=== PATIENT | male | born 1950 | race Caucasian/White ===

== ENCOUNTER 2016-07-11 10:49 | Outpatient (RCR) | payer MEDICARE, BC, OTHER ==
[~2016-07-11 10:49] MED LIST: ACHD5005 PO; ACYC400T79; AMLO5TAB2 GT; CIALIS 10 MG; CITA20TA4 PO; CLPD75T; ENAL10TA; ENAL20TA PO; ESCT10T; METO50TA7; OLME40TA14; OMEP-10; OMEP20TA2 PO; SIMV20TA3; TADA2.5T; TMZP15C GT; TRIA1CAP4; [UNRECOGNIZED DRUG - OTHER] PO; [UNRECOGNIZED DRUG - OTHER] PO; [UNRECOGNIZED DRUG - OTHER] PO
[2016-07-11 11:08] LABS: MEAN PLATELET VOLUME 9.6 FL (7.4-10.4); RED BLOOD COUNT 5.03 10^6/uL (4.35-5.85); RED CELL DISTRIBUTION WIDTH 15.1 % (10.0-14.5); WHITE BLOOD COUNT 6.7 10^3/uL (4.3-11.0)
[2016-07-11 11:25] LABS: ALANINE AMINOTRANSFERASE 23 U/L (0-55); ALBUMIN 4.2 G/DL (3.2-4.5); ANION GAP 12 MMOL/L (5-14); ASPARTATE AMINO TRANSFERASE 17 U/L (5-34); BILIRUBIN,TOTAL 0.4 MG/DL (0.1-1.0); BLOOD UREA NITROGEN 18 MG/DL (7-18); BUN/CREATININE RATIO 20; CALCIUM 9.2 MG/DL (8.5-10.1); CARBON DIOXIDE 21 MMOL/L (21-32); CHLORIDE 105 MMOL/L (98-107); CREATININE SERUM 0.89 MG/DL (0.60-1.30); GFR ESTIMATED > 60; GLUCOSE 119 MG/DL (70-105); POTASSIUM 3.9 MMOL/L (3.6-5.0); SODIUM 138 MMOL/L (135-145); TOTAL PROTEIN 6.7 G/DL (6.4-8.2)
[2016-07-11 11:55] LABS: BILIRUBIN,URINE NEGATIVE (NEGATIVE); KETONES,URINE NEGATIVE (NEGATIVE); LEUKOCYTE ESTERASE ,URINE NEGATIVE (NEGATIVE); NITRITE,URINE NEGATIVE (NEGATIVE); PH,URINE 6 (5-9); PROTEIN,URINE NEGATIVE (NEGATIVE); UROBILINOGEN,URINE NORMAL (NORMAL)
--- NOTE | 2016-07-11 13:07 | Diagnostic Imaging Report ---
INDICATION: PRE OP Z01.810, Z01.818 COMPARISON: 06/08/2016 FINDINGS: Frontal and lateral views of the chest demonstrate normal heart size and pulmonary vascularity. There is aortic atherosclerosis. The lungs are clear. There are no signs of infiltrate, pleural effusions or pneumothoraces. The visualized osseous structures show no acute abnormalities. IMPRESSION: 1. No acute process. No signs of infiltrates, effusions or pneumothoraces. Dictated by: Dictated on workstation # [id number]
== END 2016-10-09 | disposition home or self-care (01) ==
LOC: CARD 10:49
PROVIDERS: ATTEND Thoracic Surgery (Cardiothoracic Vascular Surgery)
DX: Z01.810 Encounter for preprocedural cardiovascular examination (principal); Z01.811 Encounter for preprocedural respiratory examination; Z01.812 Encounter for preprocedural laboratory examination; I73.9 Peripheral vascular disease, unspecified
CPT/HCPCS: 36415; 71020; 80053; 81000; 85027; 93005

== ENCOUNTER → 2016-12-05 | Outpatient (CLI) | payer MEDICARE, BC, OTHER ==
--- OUTSIDE RECORDS SUMMARY | 2016-12-05 14:50 | XMS REPORT | Continuity of Care Document ---
Author Author [facility] Organization [facility] Address Unknown Phone Unavailable Allergies Active Description Code Type Severity Reaction Onset Reported/Identified Relationship to Patient Clinical Status Yes No Known Drug Allergies [id number] Drug Allergy Unknown N/ A 05/14/2009 Medications Problems Date Dx Coded Attending Type Code Diagnosis Diagnosed By 12/16/2011 Ot 211.3 BENIGN NEOPLASM LG BOWEL 12/16/2011 Ot 562.10 DIVERTICULOSIS COLON (W/O MENT OF HEMORR 12/16/2011 Ot 569.84 ANGIODYSPLASIA INTESTINE (W/O MENT OF HE 12/16/2011 Ot V16.0 FAMILY HX-GI MALIGNANCY 12/16/2011 Ot V76.51 SCREEN MAL NEOP-COLON 10/22/2013 SINA ARORA, UMA Byrd Ot 575.11 CHRONIC CHOLECYSTITIS 08/22/2014 ROSEMARY ARORA, TRISTAN Byrd Ot 786.2 09/03/2014 ROSEMARY ARORA, TRISTAN Byrd Ot 786.2 12/03/2014 ROSEMARY ARORA, TRISTAN Byrd Ot 786.2 07/24/2015 AMANDA ARORA, JANE Ho Ot D12.6 07/24/2015 AMANDA ARORA, JANE Ho Ot Z12.11 07/24/2015 AMANDA ARORA, JANE Ho Ot Z80.0 08/06/2015 AMANDA ARORA, JANE Ho Ot D12.6 08/06/2015 JANE PATEL MD Ot Z12.11 08/06/2015 AMANDA ARORA, JANE Ho Ot Z80.0 08/11/2015 AMANDA ARORA, JANE Ho Ot D12.6 08/11/2015 AMANDA ARORA, JANE Ho Ot Z12.11 08/11/2015 AMANDA ARORA, JANE Ho Ot Z80.0 06/08/2016 Ot V72.84 EXAM PRE-OPERATIVE NOS 06/08/2016 Ot 401.9 HYPERTENSION NOS 06/08/2016 AMANDA ARORA, JANE Ho Ot V72.84 EXAM PRE-OPERATIVE NOS 06/08/2016 AMANDA ARORA, JANE Ho Ot 211.3 BENIGN NEOPLASM LG BOWEL 06/08/2016 AMANDA ARORA, JANE Ho Ot 535.40 OTH SPECIFIED GASTRITIS,W/O MENTION OF H 06/08/2016 JNAE PATEL MD Ot 553.3 DIAPHRAGMATIC HERNIA 06/08/2016 JANE PATEL MD Ot 562.10 DIVERTICULOSIS COLON (W/O MENT OF HEMORR 06/08/2016 JANE PATEL MD Ot 600.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 06/08/2016 JANE PATEL MD Ot V16.0 FAMILY HX-GI MALIGNANCY 06/08/2016 JANE PATEL MD Ot V76.51 SCREEN MAL NEOP-COLON 06/08/2016 SINA ARORA, UMA Byrd Ot 789.01 ABDOMINAL PAIN, RIGHT UPPER QUADRANT 06/08/2016 SINA ARORA, UMA Byrd Ot 574.20 CHOLELITHIASIS NOS 06/08/2016 SINA ARORA, UMA Byrd Ot V72.63 PRE-PROCEDURAL LABORATORY EXAMINATION 06/08/2016 SINA ARORA, UMA Byrd Ot V74.8 SCREEN-BACTERIAL DIS NEC 06/08/2016 ROSEMARY ARORA, TRISTAN Byrd Ot 786.2 COUGH 06/08/2016 AMANDA ARORA, JANE Ho Ot D12.6 BENIGN NEOPLASM OF COLON, UNSPECIFIED 06/08/2016 JANE PATEL MD Ot Z12.11 ENCOUNTER FOR SCREENING FOR MALIGNANT NE 06/08/2016 JANE PATEL MD Ot Z80.0 FAMILY HISTORY OF MALIGNANT NEOPLASM OF 06/08/2016 JANE PATEL MD Ot Z01.818 ENCOUNTER FOR OTHER PREPROCEDURAL EXAMIN 06/09/2016 AKIL BEARDEN MD Ot I73.9 PERIPHERAL VASCULAR DISEASE, UNSPECIFIED 06/09/2016 AKIL BEARDEN MD Ot Z01.810 ENCOUNTER FOR PREPROCEDURAL CARDIOVASCUL 06/09/2016 AKIL BEARDEN MD Ot Z01.818 ENCOUNTER FOR OTHER PREPROCEDURAL EXAMIN 06/30/2016 AKIL BEARDEN MD Ot I73.9 PERIPHERAL VASCULAR DISEASE, UNSPECIFIED 06/30/2016 AKIL BEARDEN MD Ot Z01.810 ENCOUNTER FOR PREPROCEDURAL CARDIOVASCUL 06/30/2016 AKIL BEARDEN MD Ot Z01.818 ENCOUNTER FOR OTHER PREPROCEDURAL EXAMIN 07/06/2016 AKIL BEARDEN MD Ot I73.9 PERIPHERAL VASCULAR DISEASE, UNSPECIFIED 07/06/2016 AKIL BEARDEN MD Ot Z01.810 ENCOUNTER FOR PREPROCEDURAL CARDIOVASCUL 07/06/2016 AKIL BEARDEN MD Ot Z01.818 ENCOUNTER FOR OTHER PREPROCEDURAL EXAMIN 07/11/2016 Ot V72.84 EXAM PRE-OPERATIVE NOS 07/11/2016 Ot 401.9 HYPERTENSION NOS 07/11/2016 AMANDA ARORA, JANE Ho Ot V72.84 EXAM PRE-OPERATIVE NOS 07/11/2016 AMANDA ARORA, JANE Ho Ot 211.3 BENIGN NEOPLASM LG BOWEL 07/11/2016 AMANDA ARORA, JANE Ho Ot 535.40 OTH SPECIFIED GASTRITIS,W/O MENTION OF H 07/11/2016 JANE PATEL MD Ot 553.3 DIAPHRAGMATIC HERNIA 07/11/2016 JANE PATEL MD Ot 562.10 DIVERTICULOSIS COLON (W/O MENT OF HEMORR 07/11/2016 JANE PATEL MD Ot 600.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 07/11/2016 JANE PATEL MD Ot V16.0 FAMILY HX-GI MALIGNANCY 07/11/2016 JANE PATEL MD Ot V76.51 SCREEN MAL NEOP-COLON 07/11/2016 SINA ARORA, UMA Byrd Ot 789.01 ABDOMINAL PAIN, RIGHT UPPER QUADRANT 07/11/2016 SINA ARORA, UMA Byrd Ot 574.20 CHOLELITHIASIS NOS 07/11/2016 SINA ARORA, UMA Byrd Ot V72.63 PRE-PROCEDURAL LABORATORY EXAMINATION 07/11/2016 ISNA ARORA, UMA Byrd Ot V74.8 SCREEN-BACTERIAL DIS NEC 07/11/2016 ROSEMARY ARORA, TRISTAN Byrd Ot 786.2 COUGH 07/11/2016 JANE PATEL MD Ot D12.6 BENIGN NEOPLASM OF COLON, UNSPECIFIED 07/11/2016 JANE PATEL MD Ot Z12.11 ENCOUNTER FOR SCREENING FOR MALIGNANT NE 07/11/2016 JANE PATEL MD Ot Z80.0 FAMILY HISTORY OF MALIGNANT NEOPLASM OF 07/11/2016 JANE PATEL MD Ot Z01.818 ENCOUNTER FOR OTHER PREPROCEDURAL EXAMIN 07/11/2016 AKIL BEARDEN MD Ot I73.9 PERIPHERAL VASCULAR DISEASE, UNSPECIFIED 07/11/2016 SULEIMAN ARORA, AKIL Ot Z01.810 ENCOUNTER FOR PREPROCEDURAL CARDIOVASCUL 07/11/2016 AKIL BEARDEN MD, Ot Z01.818 ENCOUNTER FOR OTHER PREPROCEDURAL EXAMIN 07/12/2016 Ot V72.84 EXAM PRE-OPERATIVE NOS 07/12/2016 Ot 401.9 HYPERTENSION NOS 07/12/2016 AMANDA ARORA, JANE Ho Ot V72.84 EXAM PRE-OPERATIVE NOS 07/12/2016 AMANDA ARORA, JANE Ho Ot 211.3 BENIGN NEOPLASM LG BOWEL 07/12/2016 AMANDA ARORA, JANE Ho Ot 535.40 OTH SPECIFIED GASTRITIS,W/O MENTION OF H 07/12/2016 JANE PATEL MD Ot 553.3 DIAPHRAGMATIC HERNIA 07/12/2016 JANE PATEL MD Ot 562.10 DIVERTICULOSIS COLON (W/O MENT OF HEMORR 07/12/2016 JANE PATEL MD Ot 600.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 07/12/2016 AMANDA ARORA, JANE Ho Ot V16.0 FAMILY HX-GI MALIGNANCY 07/12/2016 AMANDA ARORA, JANE Ho Ot V76.51 SCREEN MAL NEOP-COLON 07/12/2016 SINA ARORA, UMA Byrd Ot 789.01 ABDOMINAL PAIN, RIGHT UPPER QUADRANT 07/12/2016 SINA ARORA, UMA Byrd Ot 574.20 CHOLELITHIASIS NOS 07/12/2016 SINA ARORA, UMA Byrd Ot V72.63 PRE-PROCEDURAL LABORATORY EXAMINATION 07/12/2016 SINA ARORA, UMA Byrd Ot V74.8 SCREEN-BACTERIAL DIS NEC 07/12/2016 ROSEMARY ARORA, TRISTAN Byrd Ot 786.2 COUGH 07/12/2016 AMANDA ARORA, JANE Ho Ot D12.6 BENIGN NEOPLASM OF COLON, UNSPECIFIED 07/12/2016 AMANDA ARORA, JANE Ho Ot Z12.11 ENCOUNTER FOR SCREENING FOR MALIGNANT NE 07/12/2016 AMANDA ARORA, JANE Ho Ot Z80.0 FAMILY HISTORY OF MALIGNANT NEOPLASM OF 07/12/2016 JANE PATEL MD Ot Z01.818 ENCOUNTER FOR OTHER PREPROCEDURAL EXAMIN 07/12/2016 SULEIMAN ARORA, AKIL Ot I73.9 PERIPHERAL VASCULAR DISEASE, UNSPECIFIED 07/12/2016 SULEIMAN ARORA, AKIL Ot Z01.810 ENCOUNTER FOR PREPROCEDURAL CARDIOVASCUL 07/12/2016 AKIL BEARDEN MD Ot Z01.818 ENCOUNTER FOR OTHER PREPROCEDURAL EXAMIN 07/12/2016 SULEIMAN ARORA, AKIL Ot I73.9 PERIPHERAL VASCULAR DISEASE, UNSPECIFIED 07/12/2016 AKIL BEARDEN MD Ot Z01.810 ENCOUNTER FOR PREPROCEDURAL CARDIOVASCUL 07/12/2016 AKIL BEARDEN MD Ot Z01.811 ENCOUNTER FOR PREPROCEDURAL RESPIRATORY 07/12/2016 AKIL BEARDEN MD Ot Z01.812 ENCOUNTER FOR PREPROCEDURAL LABORATORY E 07/12/2016 AKIL BEARDEN MD Ot I73.9 PERIPHERAL VASCULAR DISEASE, UNSPECIFIED 07/12/2016 AKIL BEARDEN MD Ot Z01.810 ENCOUNTER FOR PREPROCEDURAL CARDIOVASCUL 07/12/2016 AKIL BEARDEN MD Ot Z01.811 ENCOUNTER FOR PREPROCEDURAL RESPIRATORY 07/12/2016 AKIL BEARDEN MD Ot Z01.812 ENCOUNTER FOR PREPROCEDURAL LABORATORY E 08/30/2016 SULEIMAN ARORA, AKIL Ot I73.9 PERIPHERAL VASCULAR DISEASE, UNSPECIFIED 08/30/2016 KAIL BEARDEN MD Ot Z01.810 ENCOUNTER FOR PREPROCEDURAL CARDIOVASCUL 08/30/2016 AKIL BEARDEN MD Ot Z01.811 ENCOUNTER FOR PREPROCEDURAL RESPIRATORY 08/30/2016 AKIL BEARDEN MD Ot Z01.812 ENCOUNTER FOR PREPROCEDURAL LABORATORY E 09/07/2016 AKIL BEARDEN MD Ot I73.9 PERIPHERAL VASCULAR DISEASE, UNSPECIFIED 09/07/2016 AKIL BEARDEN MD Ot Z01.810 ENCOUNTER FOR PREPROCEDURAL CARDIOVASCUL 09/07/2016 AKIL BEARDEN MD Ot Z01.811 ENCOUNTER FOR PREPROCEDURAL RESPIRATORY 09/07/2016 AKIL BEARDEN MD Ot Z01.812 ENCOUNTER FOR PREPROCEDURAL LABORATORY E 10/09/2016 AKIL BEARDEN MD Ot I73.9 PERIPHERAL VASCULAR DISEASE, UNSPECIFIED 10/09/2016 AKIL BEARDEN MD Ot Z01.810 ENCOUNTER FOR PREPROCEDURAL CARDIOVASCUL 10/09/2016 AKIL BEARDEN MD, Ot Z01.811 ENCOUNTER FOR PREPROCEDURAL RESPIRATORY 10/09/2016 AKIL BEARDEN MD, Ot Z01.812 ENCOUNTER FOR PREPROCEDURAL LABORATORY E Procedures Results Test Result Range Automated blood complete blood count (hemogram) panel - 06/08/16 10:29 Blood leukocytes automated count (number/volume) 5.5 10*3/ uL 4.3-11.0 Blood erythrocytes automated count (number/volume) 5.12 10*6 /uL 4.35-5.85 Venous blood hemoglobin measurement (mass/volume) 14.8 g/dL 13.3-17.7 Blood hematocrit (volume fraction) 43 % 40-54 Automated erythrocyte mean corpuscular volume 84 [foz_us] 80-99 Automated erythrocyte mean corpuscular hemoglobin (mass per erythrocyte) 29 pg 25-34 Automated erythrocyte mean corpuscular hemoglobin concentration measurement ( mass/volume) 35 g/dL 32-36 Automated erythrocyte distribution width ratio 16.1 % 10.0-14.5 Automated blood platelet count (count/volume) 219 10*3/uL 130-400 Automated blood platelet mean volume measurement 9.3 [foz_us ] 7.4-10.4 Comprehensive metabolic panel - 06/08/16 10:29 Serum or plasma sodium measurement (moles/volume) 137 mmol/ L 135-145 Serum or plasma potassium measurement (moles/volume) 4.0 mmol/L 3.6-5.0 Serum or plasma chloride measurement (moles/volume) 104 mmol /L 98-107 Carbon dioxide 27 mmol/L 21-32 Serum or plasma anion gap determination (moles/volume) 6 mmol/L 5-14 Serum or plasma urea nitrogen measurement (mass/volume) 18 mg/dL 7-18 Serum or plasma creatinine measurement (mass/volume) 0.84 mg /dL 0.60-1.30 Serum or plasma urea nitrogen/creatinine mass ratio 21 NRG Serum or plasma creatinine measurement with calculation of estimated glomerular filtration rate > NRG Serum or plasma glucose measurement (mass/volume) 92 mg/dL 70-105 Serum or plasma calcium measurement (mass/volume) 9.2 mg/dL 8.5-10.1 Serum or plasma total bilirubin measurement (mass/volume) 0.5 mg/dL 0.1-1.0 Serum or plasma alkaline phosphatase measurement (enzymatic activity/volume) 120 U/L 40-136 Serum or plasma aspartate aminotransferase measurement (enzymatic activity/ volume) 21 U/L 5-34 Serum or plasma alanine aminotransferase measurement (enzymatic activity/volume ) 36 U/L 0-55 Serum or plasma protein measurement (mass/volume) 6.4 g/dL 6.4-8.2 Serum or plasma albumin measurement (mass/volume) 4.2 g/dL 3.2-4.5 Complete urinalysis with reflex to culture - 06/08/16 11:09 Urine color determination YELLOW NRG Urine clarity determination CLEAR NRG Urine pH measurement by test strip 6 5- 9 Specific gravity of urine by test strip 1.010 1.016-1.022 Urine protein assay by test strip, semi-quantitative NEGATIVE NEGATIVE Urine glucose detection by automated test strip NEGATIVE NEGATIVE Erythrocytes detection in urine sediment by light microscopy NEGATIVE NEGATIVE Urine ketones detection by automated test strip NEGATIVE NEGATIVE Urine nitrite detection by test strip NEGATIVE NEGATIVE Urine total bilirubin detection by test strip NEGATIVE NEGATIVE Urine urobilinogen measurement by automated test strip (mass/volume) NORMAL NORMAL Urine leukocyte esterase detection by dipstick 1+ NEGATIVE Automated urine sediment erythrocyte count by microscopy (number/high power field) NONE NRG Automated urine sediment leukocyte count by microscopy (number/high power field ) [HPF] NRG Bacteria detection in urine sediment by light microscopy TRACE NRG Crystals detection in urine sediment by light microscopy NONE NRG Casts detection in urine sediment by light microscopy NONE NRG Mucus detection in urine sediment by light microscopy SMALL NRG Complete urinalysis with reflex to culture NO NRG Automated blood complete blood count (hemogram) panel - 07/11/16 11:01 Blood leukocytes automated count (number/volume) 6.7 10*3/ uL 4.3-11.0 Blood erythrocytes automated count (number/volume) 5.03 10*6 /uL 4.35-5.85 Venous blood hemoglobin measurement (mass/volume) 14.7 g/dL 13.3-17.7 Blood hematocrit (volume fraction) 43 % 40-54 Automated erythrocyte mean corpuscular volume 85 [foz_us] 80-99 Automated erythrocyte mean corpuscular hemoglobin (mass per erythrocyte) 29 pg 25-34 Automated erythrocyte mean corpuscular hemoglobin concentration measurement ( mass/volume) 35 g/dL 32-36 Automated erythrocyte distribution width ratio 15.1 % 10.0-14.5 Automated blood platelet count (count/volume) 195 10*3/uL 130-400 Automated blood platelet mean volume measurement 9.6 [foz_us ] 7.4-10.4 Comprehensive metabolic panel - 07/11/16 11:01 Serum or plasma sodium measurement (moles/volume) 138 mmol/ L 135-145 Serum or plasma potassium measurement (moles/volume) 3.9 mmol/L 3.6-5.0 Serum or plasma chloride measurement (moles/volume) 105 mmol /L 98-107 Carbon dioxide 21 mmol/L 21-32 Serum or plasma anion gap determination (moles/volume) 12 mmol/L 5-14 Serum or plasma urea nitrogen measurement (mass/volume) 18 mg/dL 7-18 Serum or plasma creatinine measurement (mass/volume) 0.89 mg /dL 0.60-1.30 Serum or plasma urea nitrogen/creatinine mass ratio 20 NRG Serum or plasma creatinine measurement with calculation of estimated glomerular filtration rate > NRG Serum or plasma glucose measurement (mass/volume) 119 mg/dL 70-105 Serum or plasma calcium measurement (mass/volume) 9.2 mg/dL 8.5-10.1 Serum or plasma total bilirubin measurement (mass/volume) 0.4 mg/dL 0.1-1.0 Serum or plasma alkaline phosphatase measurement (enzymatic activity/volume) 115 U/L 40-136 Serum or plasma aspartate aminotransferase measurement (enzymatic activity/ volume) 17 U/L 5-34 Serum or plasma alanine aminotransferase measurement (enzymatic activity/volume ) 23 U/L 0-55 Serum or plasma protein measurement (mass/volume) 6.7 g/dL 6.4-8.2 Serum or plasma albumin measurement (mass/volume) 4.2 g/dL 3.2-4.5 Complete urinalysis with reflex to culture - 07/11/16 11:01 Urine color determination YELLOW NRG Urine clarity determination SLIGHTLY CLOUDY NRG Urine pH measurement by test strip 6 5- 9 Specific gravity of urine by test strip 1.015 1.016-1.022 Urine protein assay by test strip, semi-quantitative NEGATIVE NEGATIVE Urine glucose detection by automated test strip NEGATIVE NEGATIVE Erythrocytes detection in urine sediment by light microscopy NEGATIVE NEGATIVE Urine ketones detection by automated test strip NEGATIVE NEGATIVE Urine nitrite detection by test strip NEGATIVE NEGATIVE Urine total bilirubin detection by test strip NEGATIVE NEGATIVE Urine urobilinogen measurement by automated test strip (mass/volume) NORMAL NORMAL Urine leukocyte esterase detection by dipstick NEGATIVE NEGATIVE Automated urine sediment erythrocyte count by microscopy (number/high power field) NONE NRG Automated urine sediment leukocyte count by microscopy (number/high power field ) NONE NRG Bacteria detection in urine sediment by light microscopy NEGATIVE NRG Squamous epithelial cells detection in urine sediment by light microscopy NONE NRG Crystals detection in urine sediment by light microscopy NONE NRG Casts detection in urine sediment by light microscopy NONE NRG Mucus detection in urine sediment by light microscopy NEGATIVE NRG Complete urinalysis with reflex to culture NO NRG Encounters ACCT No. Visit Date/Time Discharge Status Pt. Type Provider Facility Loc./Unit Complaint [id number] 07/11/2016 10:49:00 2016 00:01:00 DIS Outpatient AKIL BEARDEN MD [facility] CARD Z01.810, Z01.818,PERIHPERAL VASCULAR DISEASE,I73.9 [id number] 07/17/2015 06:49:00 2014 23:59:59 CLS Outpatient JANE PATEL MD [facility] FAMILY HX COLON CANCER; HYX POLYPS [id number] 07/16/2015 05:42:00 2014 23:59:59 CLS Outpatient JANE PATEL MD [facility] PREOP FAMILY HX COLON CANCER; HYX POLYPS [id number] 08/14/2014 12:46:00 2013 23:59:59 CLS Outpatient TRISTAN RILEY MD [facility] RAD COUGH [id number] 10/22/2013 06:04:00 2013 12:50:00 DIS Outpatient UMA ANDINO MD [facility] GALLSTONES [id number] 10/07/2013 07:36:00 2012 23:59:59 CLS Outpatient UMA ANDINO MD [facility] PREOP GALLSTONES [id number] 08/30/2013 07:57:00 2012 23:59:59 CLS Outpatient UMA ANDINO MD [facility] RAD RUQ PAIN [id number] 08/02/2013 06:39:00 2012 23:59:59 CLS Outpatient JANE PATEL MD [facility] SDC SCREENING [id number] 08/01/2013 07:14:00 2012 23:59:59 CLS Outpatient JANE PATEL MD [facility] PREOP SCREENING [id number] 10/10/2016 10:45:00 PEN Preadmit AKIL BEARDEN MD [facility] CARD Z01.810, Z01.818,PERIHPERAL VASCULAR DISEASE,I73.9 [id number] 06/08/2016 10:08:00 ACT Outpatient AKIL BEARDEN MD [facility] LAB Z01.810,Z01.818 [id number] 06/08/2016 10:06:00 Document Registration [id number] 06/08/2016 10:06:00 Document Registration [id number] 04/10/2012 07:51:00 Document Registration [id number] 12/16/2011 07:45:00 Document Registration [id number] 12/14/2011 08:11:00 Document Registration
[2016-12-05 15:22] LABS: BASOPHILS % (AUTO) 0 % (0-10); EOSINOPHILS # (AUTO) 0.2 10^3/uL (0.0-0.3); EOSINOPHILS % (AUTO) 4 % (0-10); LYMPHOCYTES % (AUTO) 31 % (12-44); MEAN CORPUSCULAR HEMOGLOBIN 29 PG (25-34); MEAN CORPUSCULAR HGB CONC 35 G/DL (32-36); MEAN CORPUSCULAR VOLUME 83 FL (80-99); MEAN PLATELET VOLUME 9.9 FL (7.4-10.4); MONOCYTES # (AUTO) 0.5 X 10^3 (0.0-1.0); MONOCYTES % (AUTO) 8 % (0-12); NEUTROPHILS # (AUTO) 3.7 X 10^3 (1.8-7.8); NEUTROPHILS % (AUTO) 58 % (42-75); PLATELET COUNT 216 10^3/uL (130-400); RED BLOOD COUNT 5.42 10^6/uL (4.35-5.85); RED CELL DISTRIBUTION WIDTH 14.8 % (10.0-14.5); WHITE BLOOD COUNT 6.5 10^3/uL (4.3-11.0)
--- NOTE | 2016-12-05 15:28 | Diagnostic Imaging Report ---
PA and lateral views of the chest. INDICATION: Cough and shortness of breath. FINDINGS: The lungs are clear. The heart size is normal. No effusion or pneumothorax. The mediastinum and allegra appear unremarkable. IMPRESSION: Unremarkable exam. Dictated by: Dictated on workstation # [id number]
[2016-12-05 15:54] LABS: ALANINE AMINOTRANSFERASE 27 U/L (0-55); ALBUMIN 4.5 G/DL (3.2-4.5); ANION GAP 13 MMOL/L (5-14); ASPARTATE AMINO TRANSFERASE 23 U/L (5-34); BILIRUBIN,TOTAL 0.4 MG/DL (0.1-1.0); BLOOD UREA NITROGEN 16 MG/DL (7-18); BUN/CREATININE RATIO 17; CALCIUM 9.5 MG/DL (8.5-10.1); CARBON DIOXIDE 21 MMOL/L (21-32); CHLORIDE 106 MMOL/L (98-107); CREATININE SERUM 0.94 MG/DL (0.60-1.30); GFR ESTIMATED > 60; GLUCOSE 92 MG/DL (70-105); POTASSIUM 4.1 MMOL/L (3.6-5.0); SODIUM 140 MMOL/L (135-145); TOTAL PROTEIN 7.4 G/DL (6.4-8.2)
== END ==
LOC: RAD 14:45
PROVIDERS: ATTEND Internal Medicine
DX: R05 Cough (principal); R06.02 Shortness of breath; F17.200 Nicotine dependence, unspecified, uncomplicated
CPT/HCPCS: 36415; 71020; 80053; 85025

== ENCOUNTER 2017-08-23 05:35 | Outpatient (CLI) | payer MEDICARE, BC, OTHER ==
[~2017-08-23] VITALS: Ht 170.2 cm; Wt 81.6 kg
[2017-08-23] MEDS ORDERED: CLOP75TA69 PO (11:55)
[2017-08-23] MEDS ORDERED: BUPR150T20 PO (11:55)
[2017-08-23] MEDS ORDERED: BUPR150T14 PO (11:55)
[2017-08-23] MEDS ORDERED: MELO7.5T46 PO (11:55)
[2017-08-23] MEDS ORDERED: DOXE75CA2 PO (11:55)
[2017-08-23] MEDS ORDERED: AMLO5TAB2 PO (11:55)
[2017-08-23] MEDS ORDERED: METO-395 PO (11:55)
== END 2017-08-23 11:57 ==
LOC: PREOP 05:35
PROVIDERS: ATTEND Internal Medicine
DX: Z01.818 Encounter for other preprocedural examination (principal); Z86.010 Personal history of colon polyps

== ENCOUNTER 2017-08-25 07:17 | Day surgery (SDC) | payer MEDICARE, BC, OTHER ==
--- NOTE | 2017-08-10 20:33 | HISTORY AND PHYSICAL ---
DATE OF SERVICE: DATE OF ADMISSION: 08/25/2017 HISTORY OF PRESENT ILLNESS: The patient is a 67-year-old white male referred for surveillance colonoscopy due to strong family history for colon cancer and a personal history of multiple colonic adenomas. His last colonoscopy was 2 years ago, at which time he had one 6 mm sessile adenoma removed from the distal ascending colon. Reports that he has felt well in the interval, has noted no blood in the stool. Denies bowel habit change or abdominal pain. PAST MEDICAL HISTORY: Other than multiple colonic adenomas is pertinent for peripheral vascular disease, hypertension and tobaccoism. PHYSICAL EXAMINATION: GENERAL: Reveals a well-appearing, normal weight white male in no acute distress. VITAL SIGNS: Blood pressure initially 158/82, at the end of the interview was down to 140/78. CHEST: Clear. CARDIOVASCULAR: Revealed regular rate and rhythm with a soft 2/6 systolic ejection murmur heard best at the second right intercostal space. No S3 or S4 appreciated. There is no evidence of pulsus parvus et tardus. ABDOMEN: Soft, supple without mass, organomegaly or tenderness. EXTREMITIES: Reveal no cyanosis, clubbing or edema. ASSESSMENT: The patient is set up for surveillance colonoscopy due to a strong family history for colon cancer and a personal history of multiple colonic adenomas in the past. Prep instructions were given Suprep kits and patient was set up for 08/25/2017. Job ID: [id number] DocumentID: [id number] Dictated Date: 07/26/2017 21:11:08 Human Resources Benefits Coordinator Date: 07/26/2017 21:40:05 Dictated By: JANE PATEL MD
[~2017-08-25] VITALS: Ht 170.2 cm; Wt 81.6 kg
[~2017-08-25 07:17] MED LIST changes: +AMLO5TAB2 PO; +BUPR150T14 PO; +BUPR150T20 PO; +CLOP75TA69 PO; +DOXE75CA2 PO; +MELO7.5T46 PO; +METO-395 PO
[2017-08-25] MEDS ORDERED: 1/2 NS IV SOLUTION 1,000 ML IV STA (07:27)
[2017-08-25] MEDS ORDERED: LIDOCAINE JELLY 2% (XYLOCAINE) 5 ML TUBE MM PRN (07:30)
--- NOTE | 2017-08-25 07:38 | Pre-Op Note & Conscious Sedat ---
Pre-Operative Progress Note H&P Reviewed The H&P was reviewed, patient examined and no changes noted. Date H&P Reviewed: Aug 25, 2017 Time H&P Reviewed: 07:38 Conscious Sedation Pre-Proced ASA Class: 2 Airway Mallampati Classification: (ewiiaapaayp appropriate class) I. II. III, IV Lungs Heart ASA score ASA 1: a normal healthy patient ASA 2: a patient with a mild systemic disease (mid diabetes, controlled hypertension, obesity ASA 3: a patient with a severe systemic disease that limits activity (angina , COPD, prior Myocardial infarction) ASA 4: a patient with an incapacitating disease that is a constant threat to life (CHF, renal failure) ASA 5: a moribund patient not expected to survive 24 hrs. (ruptured aneurysm) ASA 6: a declared brain patient whose organs are being harvested. For emergent operations, add the letter E after the classification Grade 2 Sedation Plan: Analgesia, Amnesia, Plan communicated to team members, Discussed options with patient/fam, Discussed risks with patient/fam Note The patient is an appropriate candidate to undergo the planned procedure, sedation, and anesthesia. The patient immediately re-assessed prior to indication. JANE PATEL MD Aug 25, 2017 07:38
[2017-08-25 07:54] VITALS: BP 169/98
[2017-08-25] MEDS ORDERED: LIDOCAINE JELLY 2% (XYLOCAINE) 5 ML TUBE ONE (08:05)
[2017-08-25] MEDS ORDERED: MIDAZOLAM 2 MG/2 ML (VERSED) VIAL ONE ×2 (08:05)
[2017-08-25] MEDS ORDERED: fentaNYL INJECTION 100 MCG/2 ML AMP ONE (08:05)
[2017-08-25] MEDS ORDERED: MIDAZOLAM 2 MG/2 ML (VERSED) VIAL IVP PRN (08:15)
[2017-08-25] MEDS: fentaNYL INJECTION 100 MCG/2 ML AMP IVP PRN ×2 (08:40→08:45)
[2017-08-25 09:30] VITALS: BP 148/92
[2017-08-25 10:15] VITALS: BP 118/91
[2017-08-25 10:25] VITALS: BP 118/91
--- NOTE | 2017-08-25 14:52 | OPERATIVE REPORT ---
DATE OF SERVICE: COLONOSCOPY SUMMARY I am his primary care physician. INDICATION FOR PROCEDURE: Surveillance colonoscopy due to history of multiple adenomatous colonic polyp removal in the past. The patient was placed in the left lateral decubitus position. Prior to undergoing colonoscopy, digital rectal evaluation was performed. Anal sphincter tone was normal and the perianal reflexes intact. Prostate is mildly enlarged, anodular, nontender to digital inspection. No other abnormalities, no additional inspection of anal canal or distal rectal vault. The colonoscope was then inserted into the rectum and under direct visualization advanced to the cecum. The cecum was identified by identification of the ileocecal valve and the cecal strap. Photographic documentation was obtained. Careful inspection was made as the colonoscope was withdrawn. FINDINGS: There was no evidence for internal or external hemorrhoids and the rectum was unremarkable. A diminutive polyp was noted at the rectosigmoid junction was biopsied and ablated and submitted for histopathology. Similar polyps in the 2 to 4 mm size range with benign appearance were noted with locations in the distal descending, splenic flexure, proximal transverse and hepatic flexure locations all were biopsied and ablated and submitted for histopathology. Several small sigmoid diverticulum were present. No other abnormalities noted on today's colonoscopy to the cecum. ASSESSMENT: Five diminutive polyps were removed locations as noted above and submitted for histopathology. They were all in 2 to 4 mm size range. The patient requested a 2.5 year screening interval. As long as there are no surprises on histopathology today, we will plan on repeat surveillance colonoscopy in the summer. Job ID: [id number] DocumentID: [id number] Dictated Date: 08/25/2017 12:26:51 Facility Maintenance Technician Date: 08/25/2017 14:51:32 Dictated By: JANE PATEL MD [facility]
== END 2017-08-25 10:25 | disposition home or self-care (01) ==
LOC: ENDO 07:17
PROVIDERS: ATTEND Internal Medicine
DX: Z12.11 Encounter for screening for malignant neoplasm of colon (principal); D12.3 Benign neoplasm of transverse colon; D12.4 Benign neoplasm of descending colon; D12.7 Benign neoplasm of rectosigmoid junction; Z80.0 Family history of malignant neoplasm of digestive organs; I10 Essential (primary) hypertension; I73.9 Peripheral vascular disease, unspecified; Z72.0 Tobacco use

== ENCOUNTER → 2017-09-27 | Outpatient (CLI) | payer MEDICARE, BC, OTHER ==
--- NOTE | 2017-09-27 13:51 | Diagnostic Imaging Report ---
PROCEDURE: Lung cancer screening CT chest without contrast. TECHNIQUE: Multiple contiguous axial images were obtained through the chest without the use of intravenous contrast. This is performed with a low-dose protocol. INDICATION: Currently asymptomatic patient with 100 pack years history of smoking Comparison: None available. Findings: There is no significant consolidation, mass or suspicious nodule seen. Mild upper lobe predominant emphysema changes are seen. No significant interstitial lung disease or bronchiectasis. No pleural or pericardial effusion. The mediastinum demonstrate no mass or significantly enlarged lymph nodes. The ascending aorta demonstrates aneurysmal dilatation measuring 4.3 CM in caliber. Sections in the upper abdomen appear grossly unremarkable. The osseous structures demonstrate mild degenerative changes. IMPRESSION: No lung mass or suspicious nodule is seen. Mild emphysema changes. Lung Rads Category 2. Benign findings. Recommendations: Annual screening low-dose CT scan. Dictated by: Dictated on workstation # [id number]
== END ==
LOC: RAD 10:38
PROVIDERS: ATTEND Internal Medicine
DX: Z12.2 Encounter for screening for malignant neoplasm of respiratory organs (principal); J43.9 Emphysema, unspecified; Z87.891 Personal history of nicotine dependence

== ENCOUNTER → 2018-10-16 | Outpatient (CLI) | payer MEDICARE, BC, OTHER ==
[~2018-10-16] MED LIST changes: -AMLO5TAB2 PO; +AMLO5TAB7 PO
--- NOTE | 2018-10-16 14:25 | Diagnostic Imaging Report ---
EXAM: CT CHEST SCREENING WO INDICATION: 100 pack year smoking history. Current smoker. COMPARISON: Low-dose chest CT 09/27/2017. FINDINGS: Moderate centrilobular emphysema. No pulmonary nodule or mass. No endobronchial lesions. No pleural effusion or pneumothorax. Normal heart size. No pericardial effusion. Mild atherosclerotic calcifications including aortic. Normal caliber central pulmonary arteries. Stable ectasia of the ascending thoracic aorta measuring up to 4.2 cm in diameter. No mediastinal, hilar or axillary lymphadenopathy. Visualized upper abdominal contents are unremarkable. No acute osseous findings. IMPRESSION: 1. No new pulmonary nodule or mass. Recommend continued annual screening with low dose chest CT in 12 months. 2. Moderate centrilobular emphysema. 3. Stable ectasia of the ascending thoracic aorta measuring up to 4.2 cm in diameter. LungRads category: 1. Modifier: S. Please note that the low-dose technique of this chest CT is of non-diagnostic quality. This study is only intended for lung cancer screening of high risk patients. Dictated by: Dictated on workstation # [id number]
== END ==
LOC: RAD 09:11
PROVIDERS: ATTEND Internal Medicine
DX: Z12.2 Encounter for screening for malignant neoplasm of respiratory organs (principal); J43.2 Centrilobular emphysema; I77.810 Thoracic aortic ectasia; F17.210 Nicotine dependence, cigarettes, uncomplicated

== ENCOUNTER 2019-09-10 05:37 | Outpatient (CLI) | payer MEDICARE, BC, OTHER ==
[~2019-09-10] VITALS: Ht 172.7 cm; Wt 82.3 kg
[~2019-09-10 05:37] MED LIST changes: -AMLO5TAB7 PO; +AMLO5TAB9 PO
[2019-09-10] MEDS ORDERED: CLOP75TA28 PO (10:40)
== END 2019-09-10 10:46 ==
LOC: PREOP 05:37
PROVIDERS: ATTEND Internal Medicine
DX: Z01.818 Encounter for other preprocedural examination (principal)

== ENCOUNTER 2019-09-13 06:37 | Day surgery (SDC) | payer MEDICARE, BC, OTHER ==
--- NOTE | 2019-09-09 07:09 | HISTORY AND PHYSICAL ---
DATE OF SERVICE: COLONOSCOPY HISTORY AND PHYSICAL HISTORY OF PRESENT ILLNESS: The patient is a 69-year-old white male being set up for screening that surveillance colonoscopy due to past history of multiple adenomatous colonic polyps and a family history for colon cancer. He reports that he has been feeling well and states that this has been one year since his last cigarette. He has noted no bowel habit change. Denies abdominal pain and has noted no melena or bright red blood per rectum. Weight has been stable per his report. 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 He underwent first screening CT of the chest in October of this year at which time, he had moderate central lobular emphysematous change without evidence for neoplasia. He also had ectasia of the ascending aorta measuring 4.2 cm in diameter. He has had no chest or back pain. He has history of hypertension. His last colonoscopy was 2 years ago at which time one small hyperplastic polyp was removed. PHYSICAL EXAMINATION: GENERAL: Reveals a well-appearing white male in no acute distress. VITAL SIGNS: Weight stable 181.6 pounds. Initial blood pressure 188/94 and at the end of the interview 148/86. HEENT: Unremarkable. Oral cavity clear. NECK: Revealed no JVD, adenopathy or bruits. CHEST: Clear to auscultation. CARDIOVASCULAR: Revealed a regular rate and rhythm. Soft I to II/ systolic ejection murmur heard best over the aortic outflow tract without evidence for S3 or S4. EXTREMITIES: Reveal no cyanosis, clubbing or edema. ABDOMEN: Soft, supple without mass, organomegaly or tenderness. RECTAL: Deferred at the time of the procedure. ASSESSMENT AND PLAN: 1. The patient was set up for surveillance colonoscopy due to a past history of multiple adenomatous colonic polyps and a family history for colon cancer. Prep instructions with the Suprep kit were given and questions were answered. 2. Hypertension, controlled the day not ideal. We will review blood pressures during his upcoming colonoscopy and discuss potential medication intensification. The patient has [facility]. I will see him back in 4 months and we will see about setting up a second screening CT chest. Job ID: [id number] DocumentID: [id number] Dictated Date: 09/04/2019 14:42:48 Toll Gate Tender Date: 09/04/2019 14:59:58 Dictated By: JANE PATEL MD
[2019-09-13] VITALS (14 sets, daily range): BP systolic 131–201; BP diastolic 70–108
[~2019-09-13 06:37] MED LIST changes: +CLOP75TA28 PO; -METO-395 PO; +MTP100TCR PO
[2019-09-13] MEDS ORDERED: D5 LR IV SOLUTION 1,000 ML IV ONE (06:58)
[2019-09-13] MEDS ORDERED: MIDAZOLAM 5 MG/5 ML (VERSED) VIAL ONE (07:18)
[2019-09-13] MEDS ORDERED: LIDOCAINE JELLY 2% 6 ML SYRINGE ONE (07:18)
[2019-09-13] MEDS ORDERED: fentaNYL INJECTION 100 MCG/2 ML AMP ONE (07:19)
[2019-09-13] MEDS ORDERED: D5 LR IV SOLUTION 1,000 ML IV STA (07:26)
[2019-09-13] MEDS ORDERED: LIDOCAINE JELLY 2% 6 ML SYRINGE MM PRN (07:30)
[2019-09-13] MEDS ORDERED: fentaNYL INJECTION 100 MCG/2 ML AMP IVP ONE (07:30)
[2019-09-13] MEDS: MIDAZOLAM 5 MG/5 ML (VERSED) VIAL IV PRN ×4 (07:52→08:22)
--- NOTE | 2019-09-13 09:06 | Pre-Op Note & Conscious Sedat ---
Pre-Operative Progress Note H&P Reviewed The H&P was reviewed, patient examined and no changes noted. Date H&P Reviewed: Sep 13, 2019 Time H&P Reviewed: 07:30 Conscious Sedation Pre-Proced ASA Score 2 For ASA 3 and 4: Consider anesthesia and medical clearance. Also, for patients with a history of failed moderate sedation consider anesthesia. Airway Lungs Heart ASA score ASA 1: a normal healthy patient ASA 2: a patient with a mild systemic disease (mid diabetes, controlled hypertension, obesity ASA 3: a patient with a severe systemic disease that limits activity (angina, COPD, prior Myocardial infarction) ASA 4: a patient with an incapacitating disease that is a constant threat to life (CHF, renal failure) ASA 5: a moribund patient not expected to survive 24 hrs. (ruptured aneurysm) ASA 6: a declared brain- patient whose organs are being harvested. For emergent operations, add the letter E after the classification Mallampati Classification Grade 2 Sedation Plan Analgesia, Amnesia, Plan communicated to team members, Discussed options with patient/fam, Discussed risks with patient/fam The patient is an appropriate candidate to undergo the planned procedure, sedation, and anesthesia. The patient immediately re-assessed prior to indication. JANE PATEL MD Sep 13, 2019 09:06 POS
--- NOTE | 2019-09-13 22:29 | OPERATIVE REPORT ---
DATE OF SERVICE: PRIMARY CARE PHYSICIAN: Jane Patel MD COLONOSCOPY SUMMARY INDICATION FOR THE PROCEDURE: Surveillance colonoscopy, history of polyps with family history of colon cancer, history of colon polyps and family history of colon cancer. DESCRIPTION OF PROCEDURE: The patient was placed in the left lateral decubitus position. Prior to undergoing colonoscopy, digital rectal evaluation was performed. Anal sphincter tone was normal and the perianal reflexes intact. Prostate is mildly enlarged, anodular and nontender to digital inspection. No other abnormalities noted on additional inspection of the anal canal or distal rectal vault. The colonoscope was then inserted into the rectum and under direct visualization advanced to cecum. Cecum was identified by identification of ileocecal valve and cecal strap. Photographic documentation was obtained. Careful inspection was made as colonoscope withdrawn. FINDINGS: There was no evidence for internal or external hemorrhoids and the rectum was unremarkable. Several small sigmoid diverticulum were present without evidence for diverticulitis. No other sigmoid colonic abnormalities were appreciated. The descending colon, splenic flexure, transverse colon, and hepatic flexure were unremarkable. Present in the proximal ascending colon was an diminutive 3 mm sessile polyp that was biopsied and ablated and submitted for histopathology. The best I could do was grab tissue at the very lateral base of the polyp, cauterization did extend underneath the entirety of the polyp, which could be well visualized. There was no significant bleeding. The cecum was unremarkable. ASSESSMENT: One diminutive polyp was removed from the proximal ascending colon via hot forceps as noted above. Considering family history and patient history of multiple colonic polyps, we will likely be recommending repeat colonoscopy in 1 to 2-year time frame. Prostate evaluation was compatible with mild BPH and mild diverticular disease confined to the sigmoid colon was noted. Job ID: [id number] DocumentID: [id number] Dictated Date: 09/13/2019 12:03:26 Retirement Manager Date: 09/13/2019 22:28:41 Dictated By: JANE PATEL MD
== END 2019-09-13 09:15 | disposition home or self-care (01) ==
LOC: ENDO 06:37
PROVIDERS: ATTEND Internal Medicine
DX: Z12.11 Encounter for screening for malignant neoplasm of colon (principal); K63.5 Polyp of colon; I10 Essential (primary) hypertension; N40.0 Benign prostatic hyperplasia without lower urinary tract symptoms; J44.9 Chronic obstructive pulmonary disease, unspecified; Z80.0 Family history of malignant neoplasm of digestive organs
CPT/HCPCS: 88305

== ENCOUNTER → 2019-11-04 | Outpatient (CLI) | payer MEDICARE, BC, OTHER ==
--- NOTE | 2019-11-04 08:52 | Diagnostic Imaging Report ---
EXAMINATION: CT Chest without contrast (lung screening). TECHNIQUE: Multiple contiguous axial images were obtained through the chest without the use of intravenous contrast according to lung cancer screening protocol. All CT scans use one or more of the following dose optimizing techniques: automated exposure control, MA and/or KvP adjustment based on a patient size and exam type, or iterative reconstruction. HISTORY: 100 pack year history of smoking. COMPARISON: 10/16/2018 FINDINGS: There is no edema or pneumonia. No pleural effusion. No pneumothorax. There are a few areas of centrilobular groundglass in the right lower lobe. The most discrete area is a 9 mm in average diameter sub-solid nodule (series 2, image 171). Heart size is normal. No pericardial effusion. Aorta is normal in caliber. There is no axillary or supraclavicular lymphadenopathy. There is no mediastinal lymphadenopathy. Gallbladder is surgically absent. There are no suspicious osseus lesions. IMPRESSION: 1. No suspicious pulmonary nodules. 2. Centrilobular areas of groundglass in the right lower lobe likely representing aspiration. LUNG-RADS CATEGORY: 2 MODIFIER: S Dictated by: Dictated on workstation # [id number]
== END ==
LOC: RAD 08:03
PROVIDERS: ATTEND Internal Medicine
DX: Z12.2 Encounter for screening for malignant neoplasm of respiratory organs (principal); Z87.891 Personal history of nicotine dependence; R91.8 Other nonspecific abnormal finding of lung field

== ENCOUNTER → 2020-12-10 | Outpatient (CLI) | payer MEDICARE, BC, OTHER ==
[~2020-12-10] MED LIST changes: +AMLO-250 PO; -AMLO5TAB9 PO; -BUPR150T20 PO; +BUPR150T28 PO
--- NOTE | 2020-12-10 14:51 | Diagnostic Imaging Report ---
CT Lung Screening INDICATION:Screening for lung cancer, 100 pack year history of smoking, quit smoking 2 years prior TECHNIQUE: Noncontrast, low-dose CT imaging performed according to the lung cancer screening protocol. Auto Exposure Controls were utilize during the CT exam to meet ALARA standards for radiation dose reduction. COMPARISON:11/04/2019, 10/16/2018, and 09/27/2017 FINDINGS:Lymph nodes within the right axilla and mediastinum appear stable to slightly more prominent than the prior examination, though do appear more prominent when compared to prior imaging from 2018 and 2016. However, these lymph nodes are not pathologically enlarged. Mild scattered vascular calcifications without aneurysmal dilatation of the thoracic aorta. The heart is within normal limits in size. No pericardial effusion. No pleural effusion. No pneumothorax. Minimal background paraseptal emphysematous changes. Persistent tree-in-bud and central lobular nodularity and groundglass opacities noted within the right lower lobe. Although a few regions appear slightly improved, in general, this region has worsened since the prior examination. The trachea is patent. Cholecystectomy. The visualized upper abdomen is otherwise unremarkable. Scattered osseous degenerative changes without acute osseous abnormality. IMPRESSION: Centrilobular and tree-in-bud groundglass opacities within the right lower lobe are again identified. Although some regions have slightly improved since the prior exam, in general, overall appearance is worsened since the prior examination. This is felt related to a small airway or small vessel infectious versus inflammatory process. Aspiration would be an additional consideration. Given that some regions appear improved, neoplasm is felt unlikely. No suspicious pulmonary nodule. Lymph nodes within the chest are not enlarged, though appear diffusely more prominent than prior imaging, particularly when compared to 2016 and 2018. This may simply be on a physiologic or reactive basis, though recommend correlation with laboratory values as low-grade lymphoma would be an additional consideration. Minimal background emphysematous changes. LUNG-RADS CATEGORY:2S: Benign appearance or behavior MODIFIER: S: Minimal background emphysematous changes OTHER SIGNIFICANT FINDINGS:Lymph nodes throughout the chest, particularly the axillary regions appear more prominent than prior imaging as described above. See impression for further details. Findings within the right lower lobe likely relate to underlying infection or inflammation or aspiration. Follow-up: Low-dose CT of the chest in 12 months. Dictated by: Dictated on workstation # [id number]
== END ==
LOC: RAD 12:26
PROVIDERS: ATTEND Internal Medicine
DX: Z12.2 Encounter for screening for malignant neoplasm of respiratory organs (principal); Z87.891 Personal history of nicotine dependence
CPT/HCPCS: 71271

== ENCOUNTER 2021-09-07 06:16 | Outpatient (CLI) | payer MEDICARE, BC, OTHER ==
[~2021-09-07] VITALS: Ht 172.2 cm; Wt 79.0 kg
== END 2021-09-08 15:54 | disposition home or self-care (01) ==
LOC: PREOP 06:16
PROVIDERS: ATTEND Internal Medicine
DX: Z01.818 Encounter for other preprocedural examination (principal)

== ENCOUNTER 2021-09-17 08:41 | Day surgery (SDC) | payer MEDICARE, BC, OTHER ==
--- NOTE | 2021-09-08 06:44 | HISTORY AND PHYSICAL ---
DATE OF SERVICE: COLONOSCOPY HISTORY AND PHYSICAL HISTORY: The patient is a 71-year-old white male being set up for surveillance colonoscopy due to multiple colonic adenomas have been removed in the past. There is a strong family history for colon cancer as well suggesting hereditary nonpolyposis cancer syndrome. He last accomplished colonoscopy 2 years ago, at which time he had one inflammatory polyp removed from the proximal ascending colon. No neoplasia was identified under good prep conditions. He has a past history for hypertension, past tobaccoism, chronic bronchitis secondary to this and peripheral vascular disease. He reports that he has been feeling well. He has noted no melena or bright red blood per rectum. There have been no bowel habit change. No significant claudication symptoms and no chest discomfort with activity or dyspnea on exertion. PHYSICAL EXAMINATION: GENERAL: Reveals a white male, appeared to be in no acute distress. VITAL SIGNS: Weight was stable at 175.4 pounds, blood pressure 132/80. CHEST: Clear. CARDIOVASCULAR: Reveals a regular rate and rhythm. Soft 1 to 2/6 systolic ejection murmur heard best at left lower sternal border without evidence of pulsus, parvus or tardus. No S3 or S4 noted. EXTREMITIES: Reveal no cyanosis, clubbing or edema. ABDOMEN: Soft, supple without mass, organomegaly or tenderness. ASSESSMENT AND PLAN: 1. The patient is being set up for surveillance colonoscopy due to history of multiple adenomatous colonic polyps in the past. The patient is scheduled on 09/17/2021. Prep instructions with the Suprep kit were given and questions were answered. We will have the patient follow up in 6 months. 2. Hypertension, under good control. 3. Hyperlipidemia, has been under control on statin therapy, continue. Job ID: [id number] DocumentID: [id number] Dictated Date: 08/23/2021 17:41:49 Flexo Press Operator Date: 08/23/2021 18:06:03 Dictated By: JANE PATEL MD
[~2021-09-17] VITALS: Ht 172.2 cm; Wt 79.0 kg
[2021-09-17] MEDS ORDERED: LACTATED RINGERS 1,000 ML IV ONE (08:53)
[2021-09-17] MEDS ORDERED: LACTATED RINGERS 1,000 ML IV STA (08:54)
[2021-09-17] MEDS ORDERED: LIDOCAINE JELLY 2% 6 ML SYRINGE MM PRN (09:00)
[2021-09-17] MEDS ORDERED: ATOR40TA70 PO (09:03)
[2021-09-17] MEDS ORDERED: CLOP75TA28 PO (09:03)
[2021-09-17] MEDS ORDERED: BUPR300T43 PO (09:03)
[2021-09-17] MEDS ORDERED: LISI20TA26 PO (09:03)
[2021-09-17 09:10] VITALS: BP 141/98
--- NOTE | 2021-09-17 09:47 | Pre-Op Note & Conscious Sedat ---
Pre-Operative Progress Note H&P Reviewed The H&P was reviewed, patient examined and no changes noted. Date H&P Reviewed: Sep 17, 2021 Time H&P Reviewed: 09:47 Conscious Sedation Pre-Proced ASA Score 2 For ASA 3 and 4: Consider anesthesia and medical clearance. Also, for patients with a history of failed moderate sedation consider anesthesia. Airway Lungs Heart ASA score ASA 1: a normal healthy patient ASA 2: a patient with a mild systemic disease (mid diabetes, controlled hypertension, obesity ASA 3: a patient with a severe systemic disease that limits activity (angina, COPD, prior Myocardial infarction) ASA 4: a patient with an incapacitating disease that is a constant threat to life (CHF, renal failure) ASA 5: a moribund patient not expected to survive 24 hrs. (ruptured aneurysm) ASA 6: a declared brain- patient whose organs are being harvested. For emergent operations, add the letter E after the classification Mallampati Classification Grade 2 Sedation Plan Analgesia, Amnesia, Plan communicated to team members, Discussed options with patient/fam, Discussed risks with patient/fam The patient is an appropriate candidate to undergo the planned procedure, sedation, and anesthesia. The patient immediately re-assessed prior to indication. JANE PATEL MD Sep 17, 2021 09:47
[2021-09-17] MEDS ORDERED: PROPOFOL INJECTION 50 ML IV ONE (10:09)
[2021-09-17 10:49] VITALS: BP 143/70
[2021-09-17 10:50] VITALS: BP 137/84
[2021-09-17 10:55] VITALS: BP 155/83
[2021-09-17 11:05] VITALS: BP 155/83
--- NOTE | 2021-09-17 11:09 | Anesthesia-General Post-Op ---
MAC Patient Condition Mental Status/LOC: Same as Preop Cardiovascular: Satisfactory Nausea/Vomiting: Absent Respiratory: Satisfactory Pain: Controlled Complications: Absent Post Op Complications Complications None Follow Up Care/Instructions Patient Instructions None needed. Anesthesiology Discharge Order Discharge Order Patient is doing well, no complaints, stable vital signs, no apparent adverse anesthesia problems. No complications reported per nursing. AFSHIN BRUNER CRNA Sep 17, 2021 11:09
[2021-09-17 11:30] VITALS: BP 152/87
--- NOTE | 2021-09-17 16:06 | OPERATIVE REPORT ---
DATE OF SERVICE: COLONOSCOPY SUMMARY INDICATION FOR THE PROCEDURE: Surveillance colonoscopy with past history of colon polyps. DESCRIPTION OF PROCEDURE: The patient was placed in the left lateral decubitus position. Prior to undergoing colonoscopy, a digital rectal evaluation was performed. Anal sphincter tone was normal and the perianal reflex was intact. Prostate is mildly enlarged and anodular on digital inspection. No other abnormalities were noted on digital inspection of the anal canal or distal rectal vault. The colonoscope was then inserted into the rectum and under direct visualization advanced to the cecum. The cecum was identified by identification of the ileocecal valve and cecal strap as well as appendiceal orifice. Photographic documentation was obtained. A careful inspection was made as the colonoscope was withdrawn. The quality of the prep was good. FINDINGS: There was no evidence for internal or external hemorrhoids and the rectum was unremarkable. Several small sigmoid diverticulum were present with no other sigmoid colonic abnormalities being appreciated. The descending colon was unremarkable. There was one diminutive 2 mm sessile polyp was noted in the distal transverse colon. It was biopsied and ablated. A similar polyp was noted in the proximal transverse colon, sessile, which was biopsied and ablated. Adjacent polyps were noted at the hepatic flexure, both sessile and adenomatous in appearance without ulceration. Photographs of all polyps were obtained and both were biopsied and ablated with minimal blood loss. A similar sessile subcentimeter polyp was noted in the mid ascending colon, which was photographed, biopsied, and ablated with no blood loss. The remainder of the ascending colon and cecum were unremarkable. ASSESSMENT: Four sessile polyps were removed today subcentimeter in size as noted above with no significant blood loss. Mild diverticular disease confined to the sigmoid colon was present and the prostate is compatible with mild BPH without nodularity on digital inspection. Not mentioned above, there was one small 6 mm blush area in the mid ascending colon compatible with a small area of angiodysplasia. Likely repeat colonoscopy in 2 years considering family history as long as there are no suprises on histopathology. Job ID: [id number] DocumentID: [id number] Dictated Date: 09/17/2021 11:13:16 Relay Engineer Date: 09/17/2021 16:05:57 Dictated By: MD BLAYNE RAHMAN
== END 2021-09-17 11:30 | disposition home or self-care (01) ==
LOC: ENDO 08:41
PROVIDERS: ATTEND Internal Medicine
DX: Z12.11 Encounter for screening for malignant neoplasm of colon (principal); D12.3 Benign neoplasm of transverse colon; N40.0 Benign prostatic hyperplasia without lower urinary tract symptoms; K57.30 Diverticulosis of large intestine without perforation or abscess without bleeding; E78.5 Hyperlipidemia, unspecified; I10 Essential (primary) hypertension; I73.9 Peripheral vascular disease, unspecified; F43.10 Post-traumatic stress disorder, unspecified; F32.A Depression, unspecified; F17.210 Nicotine dependence, cigarettes, uncomplicated; Z79.899 Other long term (current) drug therapy; Z80.0 Family history of malignant neoplasm of digestive organs

== ENCOUNTER 2023-02-28 12:07 | Outpatient (RCR) | payer MEDICARE, BC, OTHER ==
[~2023-02-28 12:07] MED LIST changes: +ATOR40TA70 PO; +BUPR-105 PO; -BUPR150T14 PO; +BUPR300T43 PO; +CLOP-31 PO; -CLOP75TA69 PO; +LISI20TA26 PO
[2023-02-28 14:00] LABS: MEAN CORPUSCULAR VOLUME 103 fL (80-99); NEUTROPHILS % (AUTO) 15 % (42-75)
[2023-02-28 14:03] LABS: ABSOLUTE RETIC # 122 10e9/uL (24-90); BASOPHILS % (AUTO) 0 % (0-10); EOSINOPHILS # (AUTO) 0.4 10^3/uL (0.0-0.3); EOSINOPHILS % (AUTO) 4 % (0-10); HEMATOCRIT 25 % (40-54); HEMOGLOBIN 8.3 g/dL (13.3-17.7); LYMPHOCYTES # (AUTO) 7.1 10^3/uL (1.0-4.0); LYMPHOCYTES % (AUTO) 70 % (12-44); MEAN CORPUSCULAR HEMOGLOBIN 34 pg (25-34); MEAN CORPUSCULAR HGB CONC 33 g/dL (32-36); MEAN PLATELET VOLUME 9.3 fL (9.0-12.2); MONOCYTES % (AUTO) 10 % (0-12); NEUTROPHILS # (AUTO) 1.5 10^3/uL (1.8-7.8); PLATELET COUNT 134 10^3/uL (130-400); RETICULOCYTE % 4.92 % (0.50-2.40); WHITE BLOOD COUNT 10.1 10^3/uL (4.3-11.0)
[2023-02-28 14:17] LABS: ALBUMIN 4.1 GM/DL (3.2-4.5); BILIRUBIN,TOTAL 0.6 MG/DL (0.1-1.0); CALCIUM 9.2 MG/DL (8.5-10.1); CREATININE SERUM 0.93 MG/DL (0.60-1.30); TOTAL PROTEIN 6.2 GM/DL (6.4-8.2)
== END 2023-03-08 | disposition home or self-care (01) ==
LOC: ONC 12:07
PROVIDERS: ATTEND Internal Medicine Hematology & Oncology
DX: D69.6 Thrombocytopenia, unspecified (principal); D72.820 Lymphocytosis (symptomatic); D64.9 Anemia, unspecified
CPT/HCPCS: 80053; 82607; 82728; 83540; 83550; 83615; 85025; 85045